=== PATIENT | male | born 1995 | race Caucasian/White ===

== ENCOUNTER 2017-04-13 12:38 | Outpatient (CLI) | payer MEDICAID ==
[~2017-04-13 12:38] MED LIST: MAGN296S50 PO; POLY119P2 PO
== END 2017-04-13 23:59 | disposition home or self-care (01) ==
LOC: RT 12:38
PROVIDERS: ATTEND Student in an Organized Health Care Education/Training Program
DX: R06.89 Other abnormalities of breathing (principal); R06.09 Other forms of dyspnea; F17.200 Nicotine dependence, unspecified, uncomplicated
CPT/HCPCS: 94010